=== PATIENT | female | born 1980 ===

== ENCOUNTER 2024-09-10 12:00 | Inpatient (IN) | payer OTHER ==
[~2024-09-10] VITALS: Ht 162.6 cm; Wt 3.2 kg
[2024-09-10 14:54] LABS: INR 1.01; PARTIAL THROMBOPLASTIN TIME 26.8 SECONDS (22.0-34.0)
[2024-09-10 15:07] LABS: ALBUMIN 2.7 gm/dL (3.4-5.0); BILIRUBIN TOTAL 0.55 mg/dL (0.3-1.2); CALCIUM 8.6 mg/dL (8.5-10.1); CREATININE SERUM 0.56 mg/dL (0.55-1.02); GFR 118.72; GLOBULINA 3.6 G/DL (2.4-3.5); POTASSIUM 4.62 mEq/L (3.5-5.1); TOTAL PROTEIN 6.3 gm/dL (6.4-8.2)
[2024-09-17] MEDS ORDERED: OBSTETRIX DHA1 EAC1 PO (06:08)
[2024-09-17 06:09] VITALS: BP 101/67
[2024-09-17] MEDS ORDERED: OXYTOCIN 10 UNITS/ML VIAL ONE (06:51)
[2024-09-17] MEDS ORDERED: CITRIC ACID/SODIUM CITRATE 30 ML BLIST.PACK PO ONE (07:26)
[2024-09-17] MEDS ORDERED: CEFAZOLIN SODIUM 1,000 MG VIAL ONE (07:26)
[2024-09-17] MEDS ORDERED: OXYTOCIN 1,000 ML IV ONE (08:30)
[2024-09-17] MEDS ORDERED: RINGERS SOLUTION,LACTATED 1,000 ML IV SCH (08:30)
[2024-09-17] MEDS ORDERED: DOCUSATE SODIUM 100MG CAP PO SCH (09:00)
[2024-09-17] MEDS ORDERED: SIMETHICONE 125 MG CAPSULE PO SCH (09:00)
[2024-09-17] MEDS ORDERED: MEPERIDINE HCL/PF 25 MG/ML VIAL IV SCH (09:00)
[2024-09-17] MEDS ORDERED: PROMETHAZINE HCL 25 MG/ML AMPUL IV SCH (09:00)
[2024-09-17] MEDS ORDERED: GABAPENTIN 300 MG CAPSULE PO SCH (09:00)
[2024-09-17] MEDS ORDERED: ERYTHROMYCIN BASE OPHT 1GM EACH TUBE OP ONE (10:00)
[2024-09-17] MEDS ORDERED: MORPHINE SULFATE 4 MG/ML VIAL IV ONE (10:50)
[2024-09-17] MEDS ORDERED: HYDROCORTISONE SODIUM SUCC/PF 100 MG VIAL ONE (11:13)
[2024-09-17] MEDS ORDERED: DIPHENHYDRAMINE HCL 50 MG/ML VIAL 1ML ONE (11:14)
[2024-09-17] MEDS ORDERED: HYDROCORTISONE SODIUM SUCC/PF 100 MG VIAL IV ONE (11:20)
[2024-09-17] MEDS ORDERED: DIPHENHYDRAMINE HCL 50 MG/ML VIAL 1ML IV ONE (11:20)
[2024-09-17] MEDS ORDERED: ONDANSETRON HCL 2 MG/ML VIAL IV SCH (12:00)
[2024-09-17 12:15] VITALS: BP 125/77
[2024-09-17] MEDS ORDERED: OxyCODONE HCL 5 MG TABLET (ROXICODONE) PO PRN (12:45)
[2024-09-17 17:02] VITALS: BP 123/70
[2024-09-18 01:58] VITALS: BP 101/58
[2024-09-18 07:08] LABS: BASO % 0.2 % (0.1-1.2); EOS # 0.04 (0.04-0.54); EOS % 0.2 % (0.7-7.0); HEMATOCRIT 32.7 % (34.1-44.9); HEMOGLOBIN 11.4 g/dL (11.2-15.7); LYMPH % 10.3 % (19.3-53.1); MEAN CORPUSCULAR HEMOGLOBIN 32.1 pg (25.6-32.2); MONO # 1.28 (0.24-0.82); MONO % 6.9 % (4.7-12.5); NEUT # 15.11 (1.56-6.13); NEUT % 81.9 % (34.0-71.1); PLATELET COUNT 207 K/uL (163-369); RED BLOOD COUNT 3.55 M/uL (3.93-5.22); RED CELL DISTRIBUTION WIDTH 13.5 % (11.6-14.4)
[2024-09-18] MEDS ORDERED: OxyCODONE HCL 5 MG TABLET (ROXICODONE) PO PRN (08:00)
[2024-09-18 12:54] VITALS: BP 95/59
[2024-09-18 17:11] VITALS: BP 101/64
[2024-09-19 03:15] VITALS: BP 106/68
[2024-09-19 09:54] VITALS: BP 130/60
[2024-09-19 13:12] VITALS: BP 115/69
[2024-09-19 16:08] VITALS: BP 113/70
[2024-09-20 01:39] VITALS: BP 115/65
[2024-09-20 08:24] VITALS: BP 106/65
[2024-09-20 16:16] VITALS: BP 112/70
[2024-09-21 01:10] VITALS: BP 103/55
[2024-09-21 08:09] VITALS: BP 114/74
== END 2024-09-21 11:05 | disposition home or self-care (01) | DRG 788 ==
LOC: O/R 09-17 05:30 → OB/GYN 09-17 05:30
PROVIDERS: ADMIT Obstetrics & Gynecology; ATTEND Obstetrics & Gynecology
PROC: 4A1HXCZ Monitoring of Products of Conception, Cardiac Rate, External Approach (ICD-10-PCS; 2024-09-17)
PROC: 10D00Z1 Extraction of Products of Conception, Low, Open Approach (ICD-10-PCS; principal; 2024-09-17 13:00)
DX: O34.29 Maternal care due to uterine scar from other previous surgery (principal); Z3A.37 37 weeks gestation of pregnancy; Z37.0 Single live birth